=== PATIENT | male | born 1995 | race Caucasian/White ===

== ENCOUNTER 2018-08-31 13:37 | Emergency (ER) | payer BC ==
--- NOTE | 2018-08-31 13:45 | EDPHY ---
H & P Time Seen by Provider: 08/31/18 13:41 HPI/ROS: HPI: This is a 23-year-old male who presents with Chief Complaint: Right ankle injury Location: Right ankle Quality: Injury Duration: 30 min to 1 hr prior to arrival Signs and Symptoms: No bleeding, no radiation, no numbness, no weakness, no tingling, no incontinence, + decreased range of motion, no swelling, + pain, no fever Timing: Acute Severity: Moderate Context: Was playing basketball when he ran and felt a sharp pain in his posterior right ankle. He thought maybe someone stepped on him but turned around unknown was there. He then noted decreased range of motion of flexion and extension of his foot. He is able to bear weight but pain is increased. Denies radiation, weakness. Modifying Factors: None Comment: ROS: A comprehensive 10 system review of systems is otherwise negative aside from elements mentioned in the history of present illness. MEDICAL/SURGICAL/SOCIAL HISTORY: Medical history: Generally healthy. Does not take any regular medications. Surgical history: Denies Social history: Originally from [place]. Student at [employer]. CONSTITUTIONAL: Moderate distress, overweight, male, awake and alert HEENT: Atraumatic and normocephalic. NECK: supple, no midline tenderness Cardiovascular: Normal S1/S2, regular rate, regular rhythm, without murmur rub or gallop. PULMONARY/CHEST: Symmetrical and nontender. Clear to auscultation bilaterally. Good air movement. No accessory muscle usage. ABDOMEN: Soft, nondistended, nontender. EXTREMITIES: 2/2 pulses, strength 5/5, right Ankle: Plantar flexion to 50, dorsiflexion to 20. Foot inversion to 35 degree. No tenderness/swelling Anterior talofibular ligament. No tenderness/swelling Calcaneofibular ligament , no tenderness/swelling posterior talofibular ligament, no tenderness/swelling posterior inferior tibiofibular ligament. Positive Powers test with decreased plantar flexion. Tenderness to palpation at the insertion of the Achilles tendon at the calcaneus. No obvious bulge or deformity appreciated. good light touch sensation. no deformities, no clubbing, no cyanosis or edema. NEUROLOGICAL: no focal neuro deficits. GCS 15. Light touch sensation intact. SKIN: Warm and dry, no erythema. no rash. Good capillary refill. Source: Patient Exam Limitations: No limitations Constitutional: Initial Vital Signs Temperature (C) 36.8 C 08/31/18 13:46 Heart Rate 78 08/31/18 13:46 Respiratory Rate 16 08/31/18 13:46 Blood Pressure 152/87 H 08/31/18 13:46 O2 Sat (%) 97 08/31/18 13:46 O2 Delivery Mode Room Air Allergies/Adverse Reactions: Sulfa (Sulfonamide Antibiotics) Allergy (Verified 08/31/18 13:45) Home Medications: Medication Instructions Recorded Advil 08/31/18 oxyCODONE/APAP 5/325 [Percocet 1 - 2 tab PO Q4H PRN #10 tab 08/31/18 5/325 (*)] Medical Decision Making - Diagnostics Imaging Results: Imaging Impressions Ankle X-Ray 08/31/18 13:41 Impression: Normal right ankle series. Procedures: Procedure: Splint placement. A right short-leg Ortho Glass posterior splint was applied by the Emergency Room plumbing technician. After application of the splint I returned and re-examined the patient. The splint was adequately immobilizing the joint and distal to the splint the patient's circulation and sensation was intact. ED Course/Re-evaluation: Vital signs reviewed and show elevated blood pressure upon arrival. Given ibuprofen and Percocet and ice pack applied Positive Powers's test concerning for Achilles tendon rupture Right ankle x-ray my read shows no fracture, dislocation. Placed in posterior short-leg splint, crutches, nonweightbearing status, orthopedic follow-up in the next 2-3 days Patient understands that he will likely need tenodesis next week No signs of neurovascular compromise/tenting of skin/compartment syndrome/ extremities and joints examined above and below area of concern and are neurovascularly intact. This patient was seen under the supervision of my secondary supervising physician. I evaluated care for this patient with attending. Discussed this patient with Dr. Negro. Differential Diagnosis: Ankle injury differential diagnosis includes but is not limited to tibia fracture, fibula fracture, metatarsal fracture, LisFranc fracture, achilles tendon rupture, sprain. - Data Points Medications Given: Discontinued Medications Ibuprofen (Motrin) 600 mg PO EDNOW ONE Stop: 08/31/18 13:52 Last Admin: 08/31/18 13:52 Dose: 600 mg Oxycodone/Acetaminophen (Percocet 5/325) 1 tab PO EDNOW ONE Stop: 08/31/18 13:52 Last Admin: 08/31/18 13:52 Dose: 1 tab Departure - Departure Disposition: Home, Routine, Self-Care Clinical Impression: Injury of right Achilles tendon Qualifiers: Encounter type: initial encounter Qualified Code(s): S86.001A - Unspecified injury of right Achilles tendon, initial encounter Traumatic rupture of right Achilles tendon Qualifiers: Encounter type: initial encounter Qualified Code(s): S86.011A - Strain of right Achilles tendon, initial encounter Condition: Good Instructions: Achilles Tendon Rupture (ED), Achilles Tendon Repair (DC) Additional Instructions: Keep the splint dry and in place until seen by Orthopedics. Use crutches to aid ambulation. Start with non weight-bearing status only. Take Tylenol 650 mg every 4 hours and/or Ibuprofen 600 mg every 8 hours with food as needed for pain. Use Percocet every 6 hours as needed for severe/break through pain. Do not use Tylenol and Percocet concomitantly. Apply ice for 30 minutes at a time; 2-3 times per day for the next 1-2 days. Follow up with Orthopedics in 2-3 days at which time they will evaluate and recommend with you if conservative management versus surgery is indicated. Follow-Up: Please follow-up as noted above. Follow-up sooner if your condition worsens or if you develop any new problems. Call as soon as possible for an appointment. Be clear when you call for an appointment that this is an Emergency Department follow-up. Contact the Emergency Department if you have trouble arranging follow-up care. Our referrals are not based on your insurance network. When time allows, contact your insurance carrier to verify the referral physician is in your plan. If not, get a referral for an in-network engineer. Referrals: Giancarlo Sosa MD [Medical Doctor] - As per Instructions Prescriptions: oxyCODONE/APAP 5/325 [Percocet 5/325 (*)] 1 - 2 tab PO Q4H PRN #10 tab PRN Reason: Pain, Severe
[2018-08-31 13:48] VITALS: BP 152/87
[2018-08-31] MEDS ORDERED: IBUPROFEN 600 MG TAB PO ONE ×2 (13:50→13:51)
[2018-08-31] MEDS ORDERED: OXYCODONE/APAP 5/325 TAB ONE (13:50)
[2018-08-31] MEDS ORDERED: OXYCODONE/APAP 5/325 TAB PO ONE (13:51)
== END 2018-08-31 14:10 | disposition home or self-care (01) ==
PROC: 2W3QX1Z Immobilization of Right Lower Leg using Splint (ICD-10-PCS; principal; 2018-08-31)
DX: S86.011A Strain of right Achilles tendon, initial encounter (principal); X50.9XXA Other and unspecified overexertion or strenuous movements or postures, initial encounter; Y92.9 Unspecified place or not applicable; Y99.9 Unspecified external cause status; Y93.67 Activity, basketball